=== PATIENT | female | born 1990 | race Two or more races ===

== ENCOUNTER 2020-08-26 11:32 | Outpatient (REF) | payer MEDICAID, SELFPAY | END 2020-08-26 11:33 | disposition home or self-care (01) | LOC: HO.LAB 11:32 | PROVIDERS: Visit Provider Internal Medicine | DX: Z20.828 Contact with and (suspected) exposure to other viral communicable diseases (principal) | CPT/HCPCS: 36415; C9803; U0003 ==

== ENCOUNTER 2022-06-09 09:39 | Outpatient (REF) | payer MEDICAID, SELFPAY ==
[2022-06-09 12:48] LABS: Cholesterol 180 mg/dL; HDL Cholesterol 67 mg/dL; LDL Cholesterol Calculated 103 mg/dl; Triglycerides 50 mg/dL
== END 2022-06-09 09:40 | disposition home or self-care (01) ==
LOC: HO.LAB 09:39
PROVIDERS: Absent Provider Registered Nurse; PCP Registered Nurse; Visit Provider Registered Nurse
DX: R07.89 Other chest pain (principal)
CPT/HCPCS: 36415; 80061

== ENCOUNTER → 2022-10-24 08:05 | Outpatient (BNVA) | payer MEDICAID, SELFPAY | PROVIDERS: Visit Provider Orthopaedic Surgery | DX: M77.12 Lateral epicondylitis, left elbow (principal) | CPT/HCPCS: 99202 ==

== ENCOUNTER 2023-10-23 09:55 | Emergency (ER) | payer MEDICAID, SELFPAY ==
--- NOTE | 2023-10-23 | ECG_ITS ---
Test Reason : cp Blood Pressure : / mmHG Vent. Rate : 070 BPM Atrial Rate : 070 BPM P-R Int : 152 ms QRS Dur : 072 ms QT Int : 392 ms P-R-T Axes : 026 024 006 degrees QTc Int : 423 ms Normal sinus rhythm Normal ECG No previous ECGs available Referred By: Generic ED Physician Electronically Signed By:Kailash Molina
--- NOTE | ~2023-10-23 | XR_ITS ---
EXAMINATION: XR CHEST CLINICAL INFORMATION: Chest pain. COMPARISON: None available. TECHNIQUE: Frontal view of the chest was obtained. FINDINGS: No significant abnormality is noted involving the heart, lungs, mediastinum, bony thorax or soft tissues. XR/XR chest 1V IMPRESSION: Unremarkable examination.
[2023-10-23 10:23] VITALS: BP 148/84; PULSE 79; RESP 20; TEMP 37.2; O2SAT 100; BMI 27.5
[2023-10-23 11:05] LABS: MANUAL DIFF FLAG NO
[2023-10-23 11:08] LABS: Basophils Absolute Auto 0.1 X10*3/uL (0.0-0.2); Basophils Percent Auto 0.7 % (0-2); Eosinophils Absolute Auto 0.2 X10*3/uL (0.0-0.4); Eosinophils Percent Auto 1.8 % (0-4); Hematocrit 39.5 % (37.0-47.0); Hemoglobin 12.7 g/dl (12.0-16.0); Imm Gran Abs Auto 0.03 X10*3/uL (0.00-0.03); Imm Gran Pct Auto 0.4 % (0.0-0.4); Mean Corpuscular HGB Conc 32.2 g/dl (31.0-35.0); Mean Corpuscular Hemoglobin 26.7 pg (27.0-33.0); Mean Corpuscular Volume 83.2 fL (80.0-98.0); Mean Platelet Volume 8.9 fL (9.4-12.3); Monocytes Absolute Auto 0.5 X10*3/uL (0.1-1.2); Monocytes Percent Auto 6.2 % (2-11); Neutrophils Absolute Auto 5.6 x10*3/uL (2.0-8.3); Neutrophils Percent Auto 66.9 % (45-73); Platelet Count 389 X10*3/uL (160-400); Red Blood Count 4.75 X10*6/uL (4.20-5.50); Red Cell Distribution Width 13.7 % (11.0-16.0); White Blood Count 8.3 X10*3/uL (4.8-10.8)
[2023-10-23 11:23] LABS: Alanine Aminotransferase 24 U/L (0-31); Albumin Level 4.5 g/dL (3.5-5.0); Alkaline Phosphatase 69 U/L (39-117); Anion Gap 10 (12-20); Aspartate Amino Transferase 26 U/L (5-31); Bilirubin Total 0.3 mg/dL (0.0-1.0); Blood Urea Nitrogen 11 mg/dL (9-16); Calcium 9.2 mg/dL (8.4-10.2); Carbon Dioxide 27 mmol/L (22-29); Chloride 106 mmol/L (96-108); Creatinine Clr Calc Pharmacy 102.2; Estimated Glomerular Filt Rate > 60; Glucose Random 93 mg/dL (60-115); Magnesium 1.9 mg/dL (1.6-2.6); Potassium 3.8 mmol/L (3.3-5.1); Sodium 139 mmol/L (135-145); Total Protein 7.4 g/dL (6.5-8.0)
[2023-10-23 11:31] LABS: Troponin-I High Sensitivity < 2.7 ng/L (<3.5-17.0)
[2023-10-23 11:34] LABS: HCG Quantitative < 2 mIU/mL
[2023-10-23 11:42] LABS: Influenza A PCR NEGATIVE (Negative); Influenza B PCR NEGATIVE (Negative); Resp Syncy Virus RNA Qual PCR NEGATIVE (Negative); SARS COV2 PCR INHOUSE NEGATIVE (Negative)
--- NOTE | 2023-10-23 13:04 | ED_ITS ---
HPI - Chest Pain General Chief Complaint: Chest Pain Stated Complaint: Chest pain Time Seen by Provider: 10/23/23 12:27 Source: patient Mode of arrival: ambulatory Limitations: no limitations History of Present Illness HPI narrative: 33-year-old female presents with about a month of substernal nonradiating intermittent chest pain. Patient reports that it comes and goes randomly, describes as a sharp pain that lasts a few seconds and then goes away. This morning she awoke with a discomfort in the substernal region not related with shortness of breath. Reports she has been feeling anxious lately particularly when she is at work and she does feel as though anxiety is related to the chest pain. She denies shortness of breath, fevers, chills, nausea, vomiting, abdominal pain, headache, vision changes, dizziness, weakness, recent sick contacts, cough. Patient does smoke cigarettes however not on control no recent travel, no history of DVT or PE. Related Data Home Medications Medication Instructions Recorded Confirmed diclofenac sodium 1 % topical gel 2 g topical QID PRN pain 10/24/22 Allergies Allergy/AdvReac Type Severity Reaction Status Date / Time No Known Allergies Allergy Mild NOT Verified 10/23/23 10:25 APPLICABLE Review of Systems 2 Review of Systems: Yes all other systems are reviewed and are negative PMFSH Past Medical History Attestation statement: The following information was validated with the patient. Source: old records reviewed and nursing notes reviewed Social History Social History Patient Tobacco Use Status: Current everyday Tobacco user Cigarettes Per Day: 4 Advance Directives: No Advance Directives Information Provided: No Current occupational status: employed Current occupation: [employer]. Physical Exam 2 Vital Signs: Vital Signs: Last Vital Signs Temp 98.0 F 10/23/23 14:46 Pulse 60 10/23/23 14:46 Resp 20 10/23/23 14:46 BP 116/85 10/23/23 14:46 Pulse Ox 100 10/23/23 14:46 O2 Del Method Room Air 10/23/23 14:46 BMI result Body Mass Index 27.5 vss Appearance: Alert.? Oriented X3.? No acute distress.? Head: Normocephalic, atraumatic, no step-offs or deformities Eyes: Pupils equal, round and reactive to light.? CVS: Normal heart rate and rhythm.? Pulses normal.? Respiratory: No respiratory distress.? Breath sounds normal.? Abdomen: Soft and nontender.? Skin: Skin warm and dry.? Normal skin color.? Normal skin turgor.? Extremities: No lower extremity edema.? No calf ttp. 5/5 strength to bilateral upper and lower extremities Back: No midline tenderness, no C-spine tenderness, full range of motion, no CVA tenderness bilaterally Neuro: Oriented X 3.? No motor deficit.? No sensory deficit. CN 2-12 intact Course Reevaluation(s) Reevaluation #1: CBC unremarkable. Chemistry unremarkable. Troponin negative x2 ekg non ischemic. Influenza, covid, rsv negative. Take your medications as prescribed. If you were prescribed antibiotics today, it is important that you take your medication to their entirety, do not skip any doses, do not finish them early. Follow-up with your primary care provider this week. Return to the emergency department with new or worsening symptoms. Such as fevers, chills, chest pain, shortness of breath, nausea, vomiting, dizziness, headache, vision changes, lethargy In case of emergency call 911 Time: 14:50 Medical Decision Making Medical Decision Making [facility] Narrative: 1305 33 year old female presents with complaints of chest pain in the substernal region nonradiating ongoing for months, does report some anxiety. No reports of shortness of breath. Physical exam benign. This is likely anxiety versus arrhythmia versus noncardiac related chest pain. Unlikely PE, patient PERC negative, unlikely ACS, dissection, pneumothorax, pneumonia. Plan basic labs, EKG. Differential Diagnosis Differential Diagnoses: The differential diagnosis associated with the presentation includes This is likely anxiety versus arrhythmia versus noncardiac related chest pain. Unlikely PE, patient PERC negative, unlikely ACS, dissection, pneumothorax, pneumonia. Admission/Observation Consideration of admission/observation: Escalation of care including admission/observation considered Unlikely Lab Data 10/23/23 11:00 10/23/23 11:00 Labs: Lab Results 10/23/23 10/23/23 Range/Units 11:00 13:37 WBC 8.3 (4.8-10.8) X10*3/uL RBC 4.75 (4.20-5.50) X10*6/uL Hgb 12.7 (12.0-16.0) g/dl Hct 39.5 (37.0-47.0) % MCV 83.2 (80.0-98.0) fL MCH 26.7 L (27.0-33.0) pg MCHC 32.2 (31.0-35.0) g/dl RDW 13.7 (11.0-16.0) % Plt Count 389 (160-400) X10*3/uL MPV 8.9 L (9.4-12.3) fL Immature Gran % (Auto) 0.4 (0.0-0.4) % Neut % (Auto) 66.9 (45-73) % Lymph % (Auto) 24.0 (20-40) % [place] % (Auto) 6.2 (2-11) % Eos % (Auto) 1.8 (0-4) % Baso % (Auto) 0.7 (0-2) % Lymph # (Auto) 2.0 (1.2-4.9) X10*3/uL [place] # (Auto) 0.5 (0.1-1.2) X10*3/uL Eos # (Auto) 0.2 (0.0-0.4) X10*3/uL Baso # (Auto) 0.1 (0.0-0.2) X10*3/uL Abs Immat Gran (auto) 0.03 (0.00-0.03) X10*3/uL Absolute Neuts (auto) 5.6 (2.0-8.3) x10*3/uL Absolute Nucleated RBC 0.000 (0.0-0.012) X10*3/uL Nucleated RBC % (auto) 0.0 (0.0-0.2) /100WBC Sodium 139 (135-145) mmol/L Potassium 3.8 (3.3-5.1) mmol/L Chloride 106 (96-108) mmol/L Carbon Dioxide 27 (22-29) mmol/L Anion Gap 10 L (12-20) BUN 11 (9-16) mg/dL Creatinine 0.75 (0.5-1.4) mg/dL Estim Creat Clear Calc 102.2 Estimated GFR > 60 Random Glucose 93 (60-115) mg/dL Calcium 9.2 (8.4-10.2) mg/dL Magnesium 1.9 (1.6-2.6) mg/dL Total Bilirubin 0.3 (0.0-1.0) mg/dL AST 26 (5-31) U/L ALT 24 (0-31) U/L Alkaline Phosphatase 69 (39-117) U/L Troponin I High Sens < 2.7 < 2.7 (<3.5-17.0) ng/L Total Protein 7.4 (6.5-8.0) g/dL Albumin 4.5 (3.5-5.0) g/dL Beta HCG, Quant < 2 mIU/mL Influenza Type A (PCR) NEGATIVE (Negative) Influenza Type B (PCR) NEGATIVE (Negative) RSV RNA Qual (PCR) NEGATIVE (Negative) SARS-CoV-2 RNA (RT-PCR) NEGATIVE (Negative) Critical Care Time Critical Care Time Critical Care Time: No Discharge Plan Discharge Clinical Impression: Chest pain, Anxiety Patient Disposition: Home, Self-Care Instructions: Chest Pain (DC), Anxiety (ED) Additional Instructions: Take your medications as prescribed. If you were prescribed antibiotics today, it is important that you take your medication to their entirety, do not skip any doses, do not finish them early. Follow-up with your primary care provider this week. Return to the emergency department with new or worsening symptoms. Such as fevers, chills, chest pain, shortness of breath, nausea, vomiting, dizziness, headache, vision changes, lethargy In case of emergency call 911 Follow-up with PCP. You may require a Cardiology referral for a Holter monitor/ further evaluation. Please try to call and schedule an appointment. Return with any new or worsening symptoms Prescriptions: No Action diclofenac sodium 1 % gel 2 g topical QID PRN (Reason: pain) Referrals: [facility] [Primary Care Provider] - 2 days Stand Alone Forms: Work/School Release Interventions: ED Discharge Assessment Last Done: 10/23/23 14:46 Discharge Date/Time: 10/23/23 14:47
[2023-10-23 14:12] LABS: Troponin-I High Sensitivity < 2.7 ng/L (<3.5-17.0)
[2023-10-23 14:46] VITALS: BP 116/85; PULSE 60; RESP 20; TEMP 36.7; O2SAT 100
== END 2023-10-23 14:47 | disposition home or self-care (01) ==
PROVIDERS: Physician Assistant; Physician Assistant Medical; Emergency Provider Emergency Medicine
DX: R07.9 Chest pain, unspecified (principal); F41.9 Anxiety disorder, unspecified; Z11.52 Encounter for screening for COVID-19; Z20.828 Contact with and (suspected) exposure to other viral communicable diseases
CPT/HCPCS: 0241U; 36415; 71045; 80053; 83735; 84484; 84702; 85025; 93005; 99283; 99284

== ENCOUNTER → 2023-10-23 10:13 | Outpatient (BNV) | payer MEDICAID, SELFPAY | PROVIDERS: Emergency Provider Emergency Medicine; Visit Provider Internal Medicine Cardiovascular Disease | DX: R07.9 Chest pain, unspecified (principal) | CPT/HCPCS: 93010 ==

== ENCOUNTER 2023-12-17 12:34 | Outpatient (REF) | payer MEDICAID, SELFPAY ==
--- NOTE | ~2023-12-17 | MM_ITS ---
EXAMINATION: MM DIAGNOSTIC DIGITAL BREAST TOMOSYNTHESIS, BILATERAL US BREAST LIMITED, BILATERAL MAMMOGRAPHY: CLINICAL INFORMATION: 33-year-old female, baseline examination. Patient complaining of palpable masses left breast at the approximate 3:00 axis, with practitioner also feeling palpable abnormality at the left 7:00 axis, as well as palpable abnormalities in the right breast at the 4:00 and 7:00 axes of which the patient does not feel. COMPARISON: Mammography: None. Baseline exam. TECHNIQUE: Digital breast tomosynthesis is performed in both the craniocaudal and mediolateral oblique views along with computer-aided detection (CAD). Synthesized 2D images are generated from the tomosynthesis. In addition, full-field left 3-D digital mediolateral view was obtained. FINDINGS: The breasts are heterogeneously dense, which may obscure small masses (ACR BI-RADS breast composition Category c). Breast parenchyma is heterogeneously dense and somewhat nodular in appearance. In the 3:00 axis of the LEFT breast, there is a palpable circumscribed mass measuring 1.2 cm with an immediately adjacent more superolateral posterior circumscribed mass measuring 1.2 cm. There are several additional circumscribed masses in the upper outer quadrant of the left breast. No definite focal abnormalities noted in the medial inferior left breast. In the RIGHT breast, there are circumscribed masses present in the upper outer quadrant, anterior and posterior one thirds, however no definitive masses are seen in the medial 4:00 right breast are in the 7:00 axis right breast. The presence of multiple circumscribed masses in both breasts is suggestive of multiple cysts or fibroadenomas, and can be called benign given the rule of multiplicity. There are no regions of architectural distortion, and there are no suspicious calcifications identified in either breast. No skin or axillary abnormalities. ULTRASOUND: CLINICAL INFORMATION: 33-year-old female, baseline examination. Patient complaining of palpable masses left breast at the approximate 3:00 axis, with practitioner also feeling palpable abnormality at the left 7:00 axis, as well as palpable abnormalities in the right breast at the 4:00 and 7:00 axes of which the patient does not feel. COMPARISON: No prior ultrasound. TECHNIQUE: Targeted sonographic evaluation was performed using a high frequency linear transducer. Right breast was scanned from the 3:00 to the 12:00 axis. Left breast was scanned from the 12:00 to the 9:00 axis. Selected archived documentation. FINDINGS: RIGHT BREAST: -In the 4:00 axis, 4 cm from the nipple, there are 2 abutting simple cysts present, the larger measuring 1.0 cm. -In the 3:00 axis of the right breast, 4 cm from the nipple, there is a 1.1 x 0.7 x 0.6 cm mildly lobulated simple cyst. This may represent some of the palpable foci. -The 7:00 axis of the right breast, 3 cm from the nipple, there is a simple cyst measuring 1.5 x 1.8 x 0.9 cm, with a small abutting satellite cysts. This could also represent the additional palpable focus. In the 9:00 axis right breast, 12 cm from the nipple, there is a somewhat elongated simple cyst measuring approximately 1.8 x 0.6 cm. -In the upper outer quadrant there are a few scattered subcentimeter cysts. LEFT BREAST: -At 3:00 axis, there are 2 immediately abutting cysts in the left breast, the slightly more superficial measuring 7 x 8 x 9 mm and likely representing the palpable focus of concern. Slightly deeper there is a minimally larger simple cyst measuring 1.2 cm in diameter. -At the 2:00 axis, 9 cm from the nipple, there are 2 abutting simple cysts, the larger measuring 1.7 x 0.9 x 1.9 cm, the smaller measuring 1.2 x 0.7 x 1.1 cm. -At the 1:00 axis there is a solitary 1.2 cm oval simple cyst. -At the 7:00 axis of the left breast there is a solitary small simple cyst measuring 7 mm. MM/MM tomosynthesis diagnostic BI IMPRESSION: -There are no findings suspicious for malignancy in either breast. -There are fibrocystic changes with heterogeneously dense breast parenchyma present. -In the right breast, palpable foci at the 4:00 and 7:00 axis likely correlate with simple cysts. -In the left breast, similarly, palpable foci at the 3:00 and 7:00 axis correlate with simple cysts. OVERALL ASSESSMENT: Mammography: BI-RADS 2 - Benign Findings Ultrasound: BI-RADS 2 - Benign Findings RECOMMENDATION: Routine annual mammography screening beginning at age 40. This patient's information was entered into a reminder system with a target due date for their next mammogram.
== END 2023-12-17 12:35 | disposition home or self-care (01) ==
LOC: HO.MAMMO 12:34
PROVIDERS: PCP Family Medicine; Visit Provider Family Medicine
DX: N63.21 Unspecified lump in the left breast, upper outer quadrant (principal); N63.13 Unspecified lump in the right breast, lower outer quadrant
CPT/HCPCS: 76642; 77062; 77066

== ENCOUNTER → 2023-12-17 13:00 | Outpatient (BNV) | payer MEDICAID, SELFPAY | PROVIDERS: PCP Family Medicine; Visit Provider Radiology Diagnostic Radiology | DX: N60.01 Solitary cyst of right breast (principal); N60.02 Solitary cyst of left breast | CPT/HCPCS: 76642; 77061; 77066 ==

== ENCOUNTER 2024-07-22 10:23 | Outpatient (REF) | payer MEDICAID, SELFPAY ==
[2024-07-22 11:17] LABS: MANUAL DIFF FLAG NO
[2024-07-22 11:21] LABS: Basophils Absolute Auto 0.1 X10*3/uL (0.0-0.2); Basophils Percent Auto 0.6 % (0-2); Eosinophils Absolute Auto 0.2 X10*3/uL (0.0-0.4); Eosinophils Percent Auto 1.5 % (0-4); Hematocrit 39.2 % (37.0-47.0); Hemoglobin 12.8 g/dl (12.0-16.0); Imm Gran Abs Auto 0.04 X10*3/uL (0.00-0.03); Imm Gran Pct Auto 0.4 % (0.0-0.4); Lymphocytes Absolute Auto 1.5 X10*3/uL (1.2-4.9); Lymphocytes Percent Auto 15.9 % (20-40); Mean Corpuscular HGB Conc 32.7 g/dl (31.0-35.0); Mean Corpuscular Hemoglobin 27.6 pg (27.0-33.0); Mean Corpuscular Volume 84.5 fL (80.0-98.0); Mean Platelet Volume 9.3 fL (9.4-12.3); Monocytes Absolute Auto 0.9 X10*3/uL (0.1-1.2); Monocytes Percent Auto 9.2 % (2-11); Neutrophils Percent Auto 72.4 % (45-73); Platelet Count 361 X10*3/uL (160-400); Red Blood Count 4.64 X10*6/uL (4.20-5.50); Red Cell Distribution Width 13.2 % (11.0-16.0); White Blood Count 9.7 X10*3/uL (4.8-10.8)
[2024-07-22 11:39] LABS: Alanine Aminotransferase 19 U/L (0-31); Albumin Level 4.4 g/dL (3.5-5.0); Alkaline Phosphatase 73 U/L (39-117); Anion Gap 10 (12-20); Aspartate Amino Transferase 20 U/L (5-31); Bilirubin Total 0.2 mg/dL (0.0-1.0); Blood Urea Nitrogen 13 mg/dL (9-16); Calcium 9.3 mg/dL (8.4-10.2); Carbon Dioxide 27 mmol/L (22-29); Chloride 107 mmol/L (96-108); Cholesterol 183 mg/dL (<200); Estimated Glomerular Filt Rate > 60; Glucose Random 100 mg/dL (60-115); HDL Cholesterol 65 mg/dL (>40); LDL Cholesterol Calculated 95 mg/dL (<100); Potassium 4.1 mmol/L (3.3-5.1); Sodium 140 mmol/L (135-145); Total Protein 7.5 g/dL (6.5-8.0); Triglycerides 118 mg/dL (<150)
[2024-07-22 11:56] LABS: TSH reflex Free T4 1.03 uIU/mL (0.32-4.0)
[2024-07-22 11:57] LABS: HBS Num1 295.71 mIU/mL (0-7.99); HBsAGNum1 0.46 S/CO (0.00-0.99); HIV AB/AG Nonreactive (Nonreactive); HIV Num 1 0.07 S/CO (0.00-0.99); Hepatitis B Core Antibody Nonreactive (Nonreactive); Hepatitis B Surface Antigen Negative (Negative); ~Hepatitis B Surface Antibody REACTIVE (Nonreactive)
[2024-07-22 12:06] LABS: Estimated Average Glucose 103 mg/dL; Hemoglobin A1C 104.5098 umol/L; Hemoglobin A1c % 5.2 % (<6.0); Total Hemoglobin (HGBA1C) 3118.2678 umol/L
[2024-07-23 10:14] LABS: HPV 16,18/45 See PAP report
[2024-07-24 15:43] LABS: RPR Rapid Plasma Reagin NON-REACTIVE (NON-REACTIVE)
[2024-07-24 19:28] LABS: C. trachomatis RNA TMA NOT DETECTED (NOT DETECTED); N. gonorrhoeae RNA TMA NOT DETECTED (NOT DETECTED); Trichomonas (NAAT) NOT DETECTED (NOT DETECTED)
[2024-07-24 21:18] LABS: HCV Log PCR <1.18 NOT DETECTED Log IU/mL (NOT DETECTED); HepC Viral Load <15 NOT DETECTED IU/mL (NOT DETECTED)
== END 2024-07-22 10:24 | disposition home or self-care (01) ==
LOC: HO.HHCL 10:23
PROVIDERS: Visit Provider Registered Nurse
DX: Z00.00 Encounter for general adult medical examination without abnormal findings (principal); Z12.4 Encounter for screening for malignant neoplasm of cervix
CPT/HCPCS: 36415; 80053; 80061; 83036; 84443; 85025; 86592; 86704; 86706; 87340; 87389; 87491; 87522; 87591; 87624; 87661; 88175

== ENCOUNTER 2025-03-25 15:05 | Outpatient (REF) | payer MEDICAID, SELFPAY ==
--- NOTE | ~2025-03-25 | XR_ITS ---
EXAMINATION: XR KNEE, LEFT CLINICAL INFORMATION: L knee pain x 5 days COMPARISON: None available. TECHNIQUE: Four views of the left knee. FINDINGS: No fracture or joint effusion. Alignment is anatomic. Joint spaces are maintained. No abnormal soft tissue calcification. XR/XR knee LT 4V IMPRESSION: Normal left knee. Electronically signed by: Jerry Gonzalez MD 03/25/2025 04:19 PM EDT
--- OUTSIDE RECORDS SUMMARY | 2025-03-25 15:09 | XMS_ITS | Encounter Summary ---
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 Role Phone Priscilla Noe Primary Care Provider [phone] Reason for Visit * Reason Onset Date Comments ER Follow-up 11/25/2023 Encounter Details Date Type Department Care Team ([facility] st Contact Info) Description 11/25/2023 Telephone [facility] [address] [place] [address] Priscilla Noe FNP [address] [place] [address] ER Follow-up Social History Tobacco Use Types Packs/Day Years Used Date Smoking Tobacco: Every Day Cigarettes Smokeless Tobacco: Never Comments:3-4 cigarettes Alcohol Use Standard Drinks/Week Comments Yes 2 (1 standard drink = 0.6 oz pur e alcohol) Occasionally Depression Answer Date Recorded Patient Health Questionnaire-9 Score 0 09/14/2022 Housing Stability Answer Date Recorded What is your housing situation today? I have arthur jordan 11/08/[address] you li ve. Do you have problems with any of the following? None of the above 11/08/2023 Food Insecurity Answer Date Recorded Within the past 12 months, y ou worried that your food would run out before you got money to buy more: Never True 11/08/2023 Within the past 12 months,th e food you bought just didn't last and you didn't have enough money to get more: Never True Transportation Answer Date Recorded In the past 12 months, has l ack of transportation kept you from medical appts, meetings, work or from getting things needed for daily living? No 11/08/2023 Utilities Answer Date Recorded In the past 12 months, has t he electric, gas, oil or water company threatened to shut off services in your home? No 11/08/2023 Depression Answer Date Recorded Patient Health Questionnaire-2 Score 0 09/14/2022 Comments Unknown Sex and Gender Information Value Date Recorded Sex Assigned at Female 06/18/2022 10:15 AM EDT Legal Sex Female 10:15 AM EDT Gender Identity Female 06/18/2022 10:15 AM EDT Sexual Orientation Straight 06/18/2022 10 :15 AM EDT documented as of this encounter Miscellaneous Notes * Telephone Encounter - Wing Terry RN - 11/25/2023 3:57 PM EDT Tc to pt regarding ED follow-up. Unable to reach pt, left message for pt to call back. * Telephone Encounter - Maninder Su - 11/25/2023 2:26 PM EDT Patient calling to report ED visit on : Date: 11/01 [place] [facility] [place] Seen for: Chest pain Patient advised will forward to team nurse for follow up documented in this encounter Plan of Treatment Not on file documented as of this encounter Visit Diagnoses Not on filedocumented in this encounter Additional Health Concerns Assessment Noted Time PHQ-9 Depression Total Score: 0 09/14/19 23 10:31 AM EST documented as of this encounter Care Teams Waxing Machine Operator Helper Relationship Specialty Start Date End Date Priscilla Noe FNP [address] [place] [address] PCP - General Family Medicine 06/04/22 documented as of this encounter
== END 2025-03-25 15:06 | disposition home or self-care (01) ==
LOC: HO.HHCX 15:05
PROVIDERS: PCP Family Medicine
DX: M25.562 Pain in left knee (principal); G89.29 Other chronic pain
CPT/HCPCS: 73564

== ENCOUNTER → 2025-03-25 15:23 | Outpatient (BNV) | payer MEDICAID, SELFPAY | PROVIDERS: PCP Family Medicine; Visit Provider Radiology Diagnostic Radiology | DX: M25.562 Pain in left knee (principal) | CPT/HCPCS: 73564 ==